=== PATIENT | female | born 1995 | race Caucasian/White ===

== ENCOUNTER 2020-03-08 19:35 | Emergency (ER) | payer BC ==
[~2020-03-08] VITALS: Ht 165.1 cm; Wt 64.4 kg
[2020-03-08 19:45] VITALS: BP 107/74
[2020-03-08 21:00] LABS: Urine Bacteria FEW /hpf (None Seen); Urine Blood Negative /uL (Negative); Urine Mucus FEW (None Seen); Urine WBC <1 /hpf (0 - 5)
== END 2020-03-09 00:24 | disposition home or self-care (01) ==
LOC: ER 19:35
DX: O26.892 Other specified pregnancy related conditions, second trimester (principal); Z3A.18 18 weeks gestation of pregnancy
CPT/HCPCS: 76805; 81001